=== PATIENT | female | born 1990 | race Caucasian/White ===

== ENCOUNTER 2016-09-06 21:31 | Emergency (ER) | payer OTHER ==
[~2016-09-06 21:31] MED LIST: PRENATAL VITAMI1 TA1 PO
[2016-09-06 22:57] VITALS: BP 147/93
== END 2016-09-06 22:57 | disposition home or self-care (01) ==
LOC: ED 21:31
DX: M54.10 Radiculopathy, site unspecified (principal); T45.516A Underdosing of anticoagulants, initial encounter; F41.9 Anxiety disorder, unspecified; Z86.711 Personal history of pulmonary embolism; Y92.89 Other specified places as the place of occurrence of the external cause
CPT/HCPCS: J1885

== ENCOUNTER 2016-09-11 16:02 | Emergency (ER) | payer OTHER ==
[~2016-09-11] VITALS: Ht 157.5 cm; Wt 100.2 kg
[2016-09-11 17:59] VITALS: BP 121/73
== END 2016-09-11 18:01 | disposition home or self-care (01) ==
LOC: ED 16:02
DX: M79.602 Pain in left arm (principal); R07.89 Other chest pain; Z86.711 Personal history of pulmonary embolism

== ENCOUNTER 2016-09-19 09:38 | Emergency (ER) | payer OTHER ==
[~2016-09-19] VITALS: Ht 157.5 cm; Wt 101.2 kg
[2016-09-19 11:30] VITALS: BP 115/89
== END 2016-09-19 11:30 | disposition home or self-care (01) ==
LOC: ED 09:38
DX: R51 Headache (principal)
CPT/HCPCS: J1200; J2765

== ENCOUNTER 2016-11-11 08:52 | Emergency (ER) | payer OTHER ==
[~2016-11-11] VITALS: Ht 157.5 cm; Wt 99.8 kg
[2016-11-11 09:29] LABS: BASOPHIL % 0.5 % (0-2); PLATELET COUNT 211 x10^3mcL (130-400)
[2016-11-11 09:33] LABS: RED CELL DISTRIBUTION WIDTH 15.2 % (11.5-14.5)
[2016-11-11 09:42] LABS: CARBON DIOXIDE 28.7 mmol/L (21-32); CHLORIDE SERUM 104 mmol/L (98-107); CREATININE SERUM 0.7 mg/dL (0.6-1.0); GFR1 > 60 mL/min; GLUCOSE SERUM 102 mg/dL (74-106); POTASSIUM SERUM 3.9 mmol/L (3.5-5.1); SODIUM SERUM 136 mmol/L (136-145)
[2016-11-11 11:32] VITALS: BP 122/68
== END 2016-11-11 11:32 | disposition home or self-care (01) ==
LOC: ED 08:52
PROVIDERS: Emergency Medicine
DX: R09.1 Pleurisy (principal)
CPT/HCPCS: 85378; J1885; J7030; Q9967